=== PATIENT | male | born 1970 | race Asian ===

== ENCOUNTER 2019-02-23 16:57 | Emergency (ER) | payer BC, OTHER ==
[~2019-02-23] VITALS: Ht 162.6 cm; Wt 75.0 kg
[2019-02-23] MEDS ORDERED: KETOROLAC 30MG/ML VIAL IV STA (17:22)
[2019-02-23] MEDS ORDERED: MORPHINE SULFATE 4 MG/ML CPJ (NOT FOR IM USE) IV STA (17:22)
[2019-02-23] MEDS ORDERED: SODIUM CHLORIDE 0.9% 1,000 ML IV ONE (17:22)
[2019-02-23] MEDS ORDERED: ONDANSETRON HCL 4MG/2ML INJ IV STA (17:22)
[2019-02-23] MEDS ORDERED: SODIUM CHLORIDE 0.9% 500 ML IV ONE (17:30)
[2019-02-23 18:00] LABS: HEMOGLOBIN. 16.4 g/dL (14.0-18.0); MEAN CORPUSCULAR HEMOGLOBIN 32.4 pg (28.0-32.0); MEAN PLATELET VOLUME 8.7 fl (7.4-10.4); PLATELET 254 x1000/uL (130-400); RED BLOOD CELL COUNT 5.06 mill/uL (4.7-6.1); RED CELL DISTRIBUTION WIDTH 13.3 % (11.6-14.6)
[2019-02-23 18:06] LABS: CHLORIDE 105 mEq/L (98-107)
[2019-02-23 19:19] LABS: PLATELET ESTIMATE NORMAL
[2019-02-23] MEDS ORDERED: INFLUENZA VIRUS VACCINE(AFLURIA) 0.5ML SYR IM ONE (21:00)
[2019-02-23 21:27] VITALS: BP 112/68
== END 2019-02-23 21:42 | disposition home or self-care (01) ==
LOC: ER 16:57
DX: A08.4 Viral intestinal infection, unspecified (principal); R00.0 Tachycardia, unspecified; E11.9 Type 2 diabetes mellitus without complications
CPT/HCPCS: 36415; 80053; 83690; 84484; 85025; 90471; 90686; 93005; 96361; 96374; 96375; 99284; J1885; J2270; J2405; J7030; J7040